=== PATIENT | female | born 1995 | race Caucasian/White ===

== ENCOUNTER 2020-11-11 09:47 | Emergency (ER) | payer OTHER ==
[~2020-11-11 09:47] MED LIST: OMNICEF 300 MG300 MG PO
[2020-11-11 11:17] LABS: HEMOGLOBIN 14.9 gm/dl (12.3-15.3); RED BLOOD COUNT 5.18 M/UL (4.00-5.10); WHITE BLOOD COUNT 12.1 K/UL (4.5-11.0)
[2020-11-11 13:18] LABS: BUN/CREATININE RATIO 18 (0-10)
[2020-11-11] MEDS ORDERED: OMNICEF 300 MG300 MG PO (17:17)
== END 2020-11-11 17:55 | disposition home or self-care (01) ==
LOC: ER1 09:47
PROVIDERS: Emergency Medicine
DX: O23.41 Unspecified infection of urinary tract in pregnancy, first trimester (principal); Z3A.01 Less than 8 weeks gestation of pregnancy
CPT/HCPCS: 76817; 80053; 81001; 83605; 83690; 84702; 84703; 85025; 87077; 87086; 87186; 96374; 99284; J0696; J7030

== ENCOUNTER 2021-07-12 07:52 | Inpatient (IN) | payer OTHER ==
[~2021-07-12] VITALS: Ht 165.1 cm; Wt 90.7 kg
[2021-07-12 08:56] LABS: HEMOGLOBIN 10.7 gm/dl (12.3-15.3); RED BLOOD COUNT 4.23 M/UL (4.00-5.10); WHITE BLOOD COUNT 7.7 K/UL (4.5-11.0)
[2021-07-12] MEDS ORDERED: FERROUS SULFAT325 MG PO (09:23)
[2021-07-12] MEDS ORDERED: PRENATABS FA T1 EACH PO (09:23)
[2021-07-12] MEDS ORDERED: FAMOTIDINE20 MG PO (09:24)
[2021-07-14 00:27] LABS: HEMOGLOBIN 9.9 gm/dl (12.3-15.3)
[2021-07-14 01:29] LABS: HEMOGLOBIN 9.9 gm/dl (12.3-15.3)
[2021-07-14 01:32] LABS: RED BLOOD COUNT 3.74 M/UL (4.00-5.10); WHITE BLOOD COUNT 17.7 K/UL (4.5-11.0)
[2021-07-14 07:14] LABS: HEMOGLOBIN 9.8 gm/dl (12.3-15.3); RED BLOOD COUNT 3.68 M/UL (4.00-5.10); WHITE BLOOD COUNT 16.7 K/UL (4.5-11.0)
== END 2021-07-15 14:09 | disposition home or self-care (01) | DRG 806 ==
LOC: OB 07:52
PROVIDERS: Internal Medicine Pulmonary Disease; Obstetrics & Gynecology; ADMIT Obstetrics & Gynecology
PROC: 10D07Z6 Extraction of Products of Conception, Vacuum, Via Natural or Artificial Opening (ICD-10-PCS; principal; 2021-07-14)
PROC: 10907ZC Drainage of Amniotic Fluid, Therapeutic from Products of Conception, Via Natural or Artificial Opening (ICD-10-PCS; 2021-07-14)
PROC: 10H07YZ Insertion of Other Device into Products of Conception, Via Natural or Artificial Opening (ICD-10-PCS; 2021-07-14)
PROC: 3E033VJ Introduction of Other Hormone into Peripheral Vein, Percutaneous Approach (ICD-10-PCS; 2021-07-14)
PROC: 4A1H7CZ Monitoring of Products of Conception, Cardiac Rate, Via Natural or Artificial Opening (ICD-10-PCS; 2021-07-14)
PROC: 10H073Z Insertion of Monitoring Electrode into Products of Conception, Via Natural or Artificial Opening (ICD-10-PCS; 2021-07-14)
PROC: 30233L1 Transfusion of Nonautologous Fresh Plasma into Peripheral Vein, Percutaneous Approach (ICD-10-PCS; 2021-07-14)
PROC: 30233N1 Transfusion of Nonautologous Red Blood Cells into Peripheral Vein, Percutaneous Approach (ICD-10-PCS; 2021-07-14)
DX: O48.0 Post-term pregnancy (principal); D62 Acute posthemorrhagic anemia; Z37.0 Single live birth; O72.1 Other immediate postpartum hemorrhage; Z20.822 Contact with and (suspected) exposure to COVID-19; O99.02 Anemia complicating childbirth; O32.4XX0 Maternal care for high head at term, not applicable or unspecified; Z3A.41 41 weeks gestation of pregnancy
CPT/HCPCS: 36415; 81001; 82800; 85014; 85018; 85025; 85384; 85610; 85730; 86850; 86900; 86901; 86920; 86927; J1885; J2210; J2590; J3430; J7120; P9016; P9017; U0002

== ENCOUNTER 2021-08-25 04:33 | Emergency (ER) | payer OTHER ==
[~2021-08-25 04:33] MED LIST changes: +FAMOTIDINE20 MG PO; +FERROUS SULFAT325 MG PO; +PRENATABS FA T1 EACH PO
[2021-08-25 05:22] LABS: HEMOGLOBIN 11.8 gm/dl (12.3-15.3); RED BLOOD COUNT 4.59 M/UL (4.00-5.10); WHITE BLOOD COUNT 11.8 K/UL (4.5-11.0)
[2021-08-25 05:47] LABS: BUN/CREATININE RATIO 24 (0-10)
[2021-08-25] MEDS ORDERED: ZOFRAN ODT 4 MG4 MG GT (06:33)
[2021-08-25] MEDS ORDERED: PERCOCET 5/325 T1 EA PO (06:33)
[2021-08-25] MEDS ORDERED: KEFLEX CAP 250250 MG PO (06:33)
== END 2021-08-25 06:55 | disposition home or self-care (01) ==
LOC: ER1 04:33
PROVIDERS: Family Medicine
DX: N30.90 Cystitis, unspecified without hematuria (principal); R10.13 Epigastric pain
CPT/HCPCS: 80053; 81001; 83690; 84703; 85025; 87086; 96374; 96375; 99284; J0690; J2270; J2405; Q9967

== ENCOUNTER → 2021-11-24 | Day surgery (SDC) | payer OTHER ==
[~2021-11-24] VITALS: Ht 165.1 cm; Wt 82.6 kg
[~2021-11-24] MED LIST changes: +ESCITALOPRAM OX10 MG PO; +KEFLEX CAP 250250 MG PO; +PERCOCET 5/325 T1 EA PO; +PROTONIX40 M1 PO; +ZOFRAN ODT 4 MG4 MG GT
== END | disposition home or self-care (01) ==
LOC: OR 08:20
DX: K22.2 Esophageal obstruction (principal); K20.90 Esophagitis, unspecified without bleeding; F41.9 Anxiety disorder, unspecified; E66.9 Obesity, unspecified; Z68.30 Body mass index [BMI] 30.0-30.9, adult; Z79.899 Other long term (current) drug therapy
CPT/HCPCS: 84703; J7040